=== PATIENT | male | born 1945 | race Caucasian/White ===

== ENCOUNTER 2016-09-29 08:02 | Day surgery (SDC) | payer MEDICARE, MEDICAID ==
[~2016-09-29] VITALS: Ht 167.6 cm; Wt 78.2 kg
[2016-09-29 09:20] VITALS: Ht 167.6 cm; Wt 78.2 kg
[2016-09-29] MEDS ORDERED: METF500T4 PO (09:28)
[2016-09-29] MEDS ORDERED: CLON1TAB3 PO (09:28)
[2016-09-29] MEDS ORDERED: SENN176S PO (09:28)
[2016-09-29] MEDS ORDERED: IBUP200C PO (09:28)
[2016-09-29] MEDS ORDERED: DOCU-144 PO (09:28)
[2016-09-29] MEDS ORDERED: PROPOFOL 20 ML ONE (09:30)
[2016-09-29 09:51] VITALS: BP 149/62; PULSE 65; RESP 17
--- NOTE | 2016-09-29 11:55 | GILP ---
DATE OF PROCEDURE: 09/29/2016 NAME OF PROCEDURES: Colonoscopy and biopsy. SURGEON: Yuki Carias MD PREOPERATIVE DIAGNOSES: 1. Change in bowel habit. 2. Screening colonoscopy. POSTOPERATIVE DIAGNOSES 1. Colonoscopy all the way to the cecum. 2. Small sigmoid colon polyp was removed using the biopsy forceps. 3. Internal hemorrhoids. INDICATION FOR THE PROCEDURE: Mr. Christo Vasquez is a 70-year-old male patient who noticed a michel e in the bowel habit. The patient never had screening colonoscopy. The procedure and possible complications were well explained to the patient, he understood and conse nted to the procedure. DESCRIPTION OF PROCEDURE: Under the influence of anesthesia, the colonoscope was carefully introduc ed in the rectum and under direct vision, it was advanced all the way to the cecum. FINDINGS: The patient had a small sigmoid colon polyp and it was removed using the biopsy forceps. He was noted to have internal hemorrhoids. He tolerated the procedure very well and there was no complication from the procedure. At the end o f the procedure, he was awake with stable vital signs and he was discharged home to the care of his family. IMPRESSION: 1. Colonoscopy all the way to the cecum. 2. Small sigmoid colon polyp was removed using the biopsy forceps. 3. Internal hemorrhoids. PLAN: 1. High fiber diet. 2. MiraLax 17 grams dissolved in a glass of water p.o. daily. 3. Await for histopathology. 4. The patient will not need another screening colonoscopy. Dictated By: YUKI BOOTH/ALBERTA Conf#: [id number] DID#: [id number] CC: YUKI CARIAS MD;*EndCC*
== END 2016-09-29 12:00 | disposition home or self-care (01) ==
LOC: GIL 08:02
PROVIDERS: ATTEND Internal Medicine Gastroenterology
DX: Z12.11 Encounter for screening for malignant neoplasm of colon (principal); D12.5 Benign neoplasm of sigmoid colon; K64.8 Other hemorrhoids; F41.9 Anxiety disorder, unspecified; E11.9 Type 2 diabetes mellitus without complications
CPT/HCPCS: 82962; 88305

== ENCOUNTER 2018-01-19 05:55 | Day surgery (SDC) | END 2018-01-19 10:03 | disposition home or self-care (01) ==